=== PATIENT | female | born 1975 | race Caucasian/White ===

== ENCOUNTER → 2020-09-12 | Outpatient (CLI) | payer OTHER ==
[~2020-09-12] MED LIST: ALBUTEROL INHAL17 GM IH; ALPRAZOLAM2 MG PO; APTIOM400 MG PO; ATIVAN1 MG PO; CARISOPRODOL 3350 MG PO; CLEOCIN HCL150 MG PO; CLONAZEPAM 0.50.5 M1 PO; CYMBALTA60 MG PO; FLEXERIL PO; FLOMAX0.4 MG PO; FOLIC ACID; HYDROCODONE-AP1 EA12 PO; HYDROCODONE-AP1 EAC6 PO; LAMICTAL100 MG PO; NASCOBAL1 EACH NASAL; NORCO 10-325 T1 EACH PO; NORCO 5-325 TA1 EACH PO; PERCOCET 5-3251 EACH PO; PHENERGAN 25 MG25 M1 PO; PROMETH-CODEIN 65 ML PO; TOPAMAX 100 MG100 MG PO; ULTRAM 50MG TAB50 MG PO; VIBRAMYCIN 100100 MG PO; VICODIN HP 10-1 EAC1 PO; VIMPAT200 MG PO; VITAMIN B-12100 MCG IM; VITAMIN B-625 MG PO; ZOLPIDEM TARTRA10 MG PO; ZPAK PO
== END ==
LOC: RAD 09:28
PROVIDERS: ATTEND Internal Medicine
DX: R06.00 Dyspnea, unspecified (principal); M85.88 Other specified disorders of bone density and structure, other site